=== PATIENT | female | born 1995 | race Caucasian/White ===

== ENCOUNTER 2018-06-05 14:41 | Outpatient (CLI) | payer BC, OTHER ==
--- NOTE | 2018-06-05 16:01 | MRI ---
MRI Lower Ext Jt Rt WO Con History: [Pain. Meniscus tear. Internal drainage when of right knee M 23.91] Comparison: None. Findings: Medial meniscus: Low-grade undersurface fraying of the medial meniscal body without a displaced tear appreciated. This is best seen on coronal proton density fat sat image 14 and 15. Lateral meniscus: Intact The ACL, PCL, MCL, LCL are intact. Extensor mechanism: Quadriceps tendon, patella, and patellar tendon are intact. Cartilage: Patellofemoral compartment: Intact Medial compartment: Intact Compartment: Intact Muscles: The muscle signal and bulk is normal. Soft tissues: Normal. No significant joint effusion. Impression: Low-grade undersurface fraying of the medial meniscal body without a displaced tear best seen on the coronal proton density fat saturation images 14 and 15.
== END 2018-06-05 14:42 | disposition home or self-care (01) ==
LOC: TBSIIMAG 14:41
PROVIDERS: ATTEND Orthopaedic Surgery
DX: M23.91 Unspecified internal derangement of right knee (principal)

== ENCOUNTER 2018-07-12 07:39 | Day surgery (SDC) | payer BC, OTHER ==
[2018-07-11 10:02] VITALS: BMI 25.9
[2018-07-12] MEDS ORDERED: PROPOFOL 20 ML ONE (08:42)
[2018-07-12] MEDS ORDERED: Fentanyl 100 MCG/2 ML VIAL ONE (09:17)
[2018-07-12] MEDS ORDERED: Midazolam HCl 2 mg/2 ml Vial ONE (09:17)
[2018-07-12] MEDS ORDERED: Lidocaine 2% w/Epinephrine 1:200K 20 ML VIAL ONE (10:13)
[2018-07-12] MEDS ORDERED: Bupivacaine HCl 0.5%/Epinephrine 1:200,000/PF 30 ml Vial ONE (10:13)
[2018-07-12] MEDS ORDERED: PROPOFOL 200 MG/20 ML VIAL ONE (10:41)
[2018-07-12] MEDS ORDERED: Ondansetron PF 4 MG/2 ML Vial ONE (10:41)
[2018-07-12] MEDS ORDERED: Dexamethasone 20 MG/5 ML VIAL ONE (10:41)
[2018-07-12] MEDS ORDERED: PHENYLEPHRINE-NS 100 MCG/ML 10 ML SYRINGE ONE (10:41)
--- NOTE | 2018-07-13 16:16 | OP ---
DATE OF PROCEDURE: 07/12/2018 PREOPERATIVE DIAGNOSIS: Right knee undersurface tear of the medial meniscus. POSTOPERATIVE DIAGNOSIS: Right knee fibrotic fat pad/scar tissue on top of anterior horn of medial meniscus. IMPROVEMENT MANAGER: None. BLOOD LOSS: Minimal. COMPLICATIONS: None. ANESTHESIA: She did have general anesthetic as well as a local knee block. DISPOSITION: She went to recovery room in stable condition. INDICATIONS: This 22-year-old female comes in after months of pain, swelling, and catching. An MRI showed her to have a partial tear undersurface medial meniscus. We tried physical therapy for nearly 6 weeks. She made no progress, at this time is presenting for surgery. DESCRIPTION OF PROCEDURE: After all appropriate consent forms were explained and signed, she was taken to the operative room, and at this time was given general anesthetic. Once the level of anesthesia was appropriate, a tourniquet was placed on the right thigh. Leg was placed in arthroscopic leg swartz. The limb was then prepped and draped in standard surgical fashion. The limb was exsanguinated and tourniquet was taken up to 300 mmHg. Inferolateral portal was established. Scope was placed into the knee joint. A needle localization technique was then used to make a medial working portal. Diagnostic arthroscopy commenced in the notch. ACL and PCL probed, found to be intact. Medial compartment was evaluated thoroughly. The cartilage on the femur and tibia were pristine. The medial meniscus was probed thoroughly on its superior and anterior surface, revealing no significant damage to the meniscus. There was an area along the anterior horn of the meniscus just before the intermeniscal ligament which had what appeared to be a ball of scar tissue, which was felt to be from the injury that was scarred down. This was debrided with shaver. Lateral compartment was evaluated and again was found to be pristine. Gutters were swept through. No loose bodies were noted. Along the medial aspect of the femur, there was a small amount of copious tissue which was hanging onto the medial femoral condyle. This was debrided. The patellofemoral joint was evaluated and found to be in excellent condition as well. We went through the knee one more time just flushing it out to see if there any loose bodies, there were none. Therefore, the scope was removed, knee was drained. Portals were closed with simple nylon stitch. Bulky sterile dressing was applied. Tourniquet was let down. Toes pinked up nicely. The patient was awakened. She was taken to recovery room in stable condition. All counts were correct at the end of the case. She did receive preoperative IV antibiotics. Job ID: [id number]
== END 2018-07-12 12:15 | disposition home or self-care (01) ==
LOC: SDC 07:39
PROVIDERS: ATTEND Orthopaedic Surgery
PROC: 0SBC4ZZ Excision of Right Knee Joint, Percutaneous Endoscopic Approach (ICD-10-PCS; principal; 2018-07-12)
PROC: 3E0T3BZ Introduction of Anesthetic Agent into Peripheral Nerves and Plexi, Percutaneous Approach (ICD-10-PCS; principal; 2018-07-12)
DX: S83.241A Other tear of medial meniscus, current injury, right knee, initial encounter (principal)
CPT/HCPCS: J0670; J0690; J1100; J2250; J2405; J2704; J3010

== ENCOUNTER 2022-05-03 16:04 | Emergency (ER) | payer OTHER, BC ==
[2022-05-03] MEDS ORDERED: Ketorolac Tromethamine 30 MG/ML VIAL ONE (17:03)
[2022-05-03] MEDS ORDERED: Ondansetron PF 4 MG/2 ML Vial ONE (17:03)
[2022-05-03 17:07] LABS: #Basophils 0.1 thou/uL (0.0-0.2); #Lymphocytes 2.4 thou/uL (1.20-3.40); #Monocytes 0.7 thou/uL (0.11-0.59); #Neutrophils 10.2 thou/uL (1.40-6.50); %Basophils 0.5 % (0.0-1.0); %Eosinophils 0.3 % (0.0-10.0); %Lymphocytes 17.6 % (21.0-51.0); %Monocytes 5.5 % (0.0-10.0); %Neutrophils 76.2 % (42.0-75.0); Mean Corpuscular HGB CONC 33.9 g/dL (32.0-36.0); Mean Corpuscular Hemoglobin 30.8 pg (27.0-31.0); Mean Corpuscular Volume 90.7 fl (78.0-98.0); Mean Platelet Volume 7.4 fL (7.4-10.4); Platelet Count 273 10x3/uL (130-400); RBC Distribution Width 11.7 % (11.5-14.5); Red Blood Cell (RBC) Count 4.87 mill/uL (4.20-5.40); White Blood Cell (WBC) Count 13.3 10x3/uL (4.8-10.8)
[2022-05-03 17:24] LABS: BHCG - Serum Negative (NEGATIVE); Pregs Control Background? CLEAR/WHITE (CLR/WHITE); Pregs Control Bar Appear? YES (CONTROL BAR)
[2022-05-03] MEDS ORDERED: Iopamidol-370 76% 500 ML 1 ML ONE (17:27)
[2022-05-03 17:28] LABS: ALT (SGPT) 19 U/L (8-55); AST (SGOT) 20 U/L (5-34); Albumin 4.5 g/dL (3.5-5.0); Alkaline Phosphatase 72 U/L (40-110); Anion Gap 11 mmol/L (10-20); BUN (Urea Nitrogen) 14 mg/dL (7.0-18.7); Bilirubin, Total 0.6 mg/dL (0.2-1.2); Calc. Creatinine Clearance 0 mL/min (70-130); Calcium 9.3 mg/dL (7.8-10.44); Carbon Dioxide 27 mmol/L (22-29); Chloride 105 mmol/L (98-107); Estimated GFR 98; Globulin 3.6 g/dL (2.4-3.5); Glucose 81 mg/dL (70-105); Lipase 7 U/L (8-78); Potassium 3.8 mmol/L (3.5-5.1); Protein, Total 8.1 g/dL (6.0-8.3); Sodium 139 mmol/L (136-145)
[2022-05-03 18:02] LABS: Bacteria/HPF None Seen HPF (None Seen); Bilirubin Negative (Negative); Blood, Urine 2+ (Negative); Clarity Clear (Clear); Glucose, Urine (Dipstick) Normal (Negative); Ketone, Urine 20 mg/dL (Negative); Leukocyte Negative Leu/uL (Negative); Nitrite Negative (Negative); Protein, Urine (Dipstick) 30 mg/dL (Neg-Trace); RBC/HPF 21-50 HPF (0-3); Urobilinogen Normal mg/dL (Less than 2); WBC/HPF 0-3 HPF (0-3); pH, Urine 6.5 (5.0-9.0)
[2022-05-03] MEDS ORDERED: Promethazine HCl 12.5 MG in Sodium Chloride 0.9% 50 ML IVPB SCH (19:15)
== END 2022-05-03 20:37 | disposition home or self-care (01) ==
LOC: ERS 16:04
DX: R10.812 Left upper quadrant abdominal tenderness (principal); R10.811 Right upper quadrant abdominal tenderness; D72.829 Elevated white blood cell count, unspecified
CPT/HCPCS: 36415; 74177; 80053; 81003; 81015; 83690; 84703; 85025; 96361; 96365; 96375; J1885; J2405; J2550; Q9967